=== PATIENT | female | born 1955 | race Caucasian/White ===

== ENCOUNTER 2025-01-21 11:11 | Inpatient (IN) | payer MEDICARE ==
[~2025-01-21 11:11] MED LIST: Iopamidol 300 61% 100 ML VIAL FS ONE
[2025-01-21] MEDS ORDERED: Dicyclomine 20 MG TAB ONE (12:12)
[2025-01-21 12:40] LABS: #Basophils 0.04 10x3/uL (0.0-0.2); #Eosinophils 0.03 10x3/uL (0.0-0.5); #Monocytes 0.89 10x3/uL (0.0-1.1); #Neutrophils 14.41 10x3/uL (1.5-8.4); %Basophils 0.2 % (0.0-2.0); %Eosinophils 0.2 % (0.0-6.0); %Lymphocytes 6.1 % (18.0-47.0); %Monocytes 5.4 % (0.0-10.0); %Neutrophils 87.7 % (40.0-75.0); Hematocrit 39.7 % (34.9-44.5); Hemoglobin 13.3 g/dL (12.0-15.5); Mean Corpuscular Hemoglobin 30.2 pg (27.0-33.0); Mean Corpuscular Volume 90.2 fL (81.6-98.3); Platelet Count 280 10x3/uL (150-450); Red Blood Cell (RBC) Count 4.40 10x6/uL (3.90-5.03); White Blood Cell (WBC) Count 16.44 10x3/uL (3.5-10.5)
[2025-01-21 13:08] LABS: ALT (SGPT) 12 U/L (Less than 34); AST (SGOT) 40 U/L (11-34); Albumin 4.4 g/dL (3.1-4.5); Alkaline Phosphatase 70 U/L (40-110); Anion Gap 16 mmol/L (10-20); BUN (Urea Nitrogen) 9 mg/dL (9.8-20.1); Bilirubin, Total 0.6 mg/dL (0.3-1.2); Calc. Creatinine Clearance 0 mL/min (70-130); Calcium 10.7 mg/dL (7.8-10.44); Carbon Dioxide 18 mmol/L (23-31); Chloride 106 mmol/L (98-107); Globulin 3.7 g/dL (2.4-3.5); Glucose 143 mg/dL (80-115); Lipase 11 U/L (8-78); Potassium 4.3 mmol/L (3.5-5.1); Sodium 136 mmol/L (136-145)
[2025-01-21 13:17] LABS: Glucose, Urine (Dipstick) Normal (Negative); Leukocyte Negative (Negative); Protein, Urine (Dipstick) 30 mg/dl (Neg-Trace); Specific Gravity, Urine 1.015 (1.005-1.030)
[2025-01-21 13:45] LABS: Bacteria/HPF 2+ HPF (None Seen); CAUTI Indications for Culture Pelvic or flank pain; Mucous/LPF 1+ LPF (<2+); WBC/HPF 0-3 HPF (0-3)
[2025-01-21 13:46] LABS: Urine Culture Reflex No No
[2025-01-21 16:22] VITALS: BMI 26.4
[2025-01-21] MEDS ORDERED: PROPOFOL 20 ML ONE (17:34)
[2025-01-21] MEDS ORDERED: Rocuronium Bromide 10 MG/ML (10ML VIAL) ONE (17:37)
[2025-01-21] MEDS ORDERED: Lidocaine 1% PF 5 ML VIAL ONE (17:37)
[2025-01-21] MEDS: Ondansetron PF 4 MG/2 ML Vial IVP PRN (17:48)
[2025-01-21] MEDS ORDERED: PHENYLEPHRINE-NS 100 MCG/ML 10 ML SYRINGE ONE (18:40)
[2025-01-21] MEDS ORDERED: SUGAMMADEX SODIUM 200 MG/2 ML VIAL ONE (19:55)
[2025-01-21] MEDS ORDERED: Ondansetron PF 4 MG/2 ML Vial IVP PRN ×2 (20:22→21:06)
[2025-01-21] MEDS ORDERED: diphenhydrAMINE 50 MG/ML VIAL IVP PRN (21:06)
[2025-01-21] MEDS ORDERED: diphenhydrAMINE 25 MG CAP PO PRN (21:06)
[2025-01-21] MEDS ORDERED: diphenhydrAMINE 50 MG/ML VIAL IM PRN (21:06)
[2025-01-21] MEDS ORDERED: Communication Order-Pharmacy FS SCH (21:15)
[2025-01-21] MEDS: fentaNYL Citrate/PF 55 ML IV SCH (21:59)
[2025-01-21] MEDS: cefOXitin Sodium 1 GM in Sodium Chloride 0.9% 100 ML IVPB SCH (22:38)
[2025-01-21] MEDS: Famotidine/PF 20 mg/2ml Vial SLOW IVP SCH (22:43)
[2025-01-21] MEDS: Enoxaparin 30 MG (0.3 mL) SYRINGE SC SCH (22:43)
[2025-01-21] MEDS: Ketorolac Tromethamine 30 MG (1 mL) VIAL IVP SCH (23:47)
[2025-01-22 04:39] LABS: #Basophils Less than 0.03 10x3/uL (0.0-0.2); #Eosinophils 0.25 10x3/uL (0.0-0.5); #Monocytes 0.87 10x3/uL (0.0-1.1); #Neutrophils 12.52 10x3/uL (1.5-8.4); %Basophils 0.1 % (0.0-2.0); %Eosinophils 1.7 % (0.0-6.0); %Lymphocytes 5.7 % (18.0-47.0); %Monocytes 6.0 % (0.0-10.0); %Neutrophils 86.2 % (40.0-75.0); Hematocrit 40.6 % (34.9-44.5); Hemoglobin 13.5 g/dL (12.0-15.5); Mean Corpuscular Hemoglobin 30.1 pg (27.0-33.0); Mean Corpuscular Volume 90.4 fL (81.6-98.3); Platelet Count 257 10x3/uL (150-450); Red Blood Cell (RBC) Count 4.49 10x6/uL (3.90-5.03); White Blood Cell (WBC) Count 14.53 10x3/uL (3.5-10.5)
[2025-01-22 04:45] LABS: Anion Gap 12 mmol/L (10-20); BUN (Urea Nitrogen) 10 mg/dL (9.8-20.1); Calc. Creatinine Clearance 95 mL/min (70-130); Calcium 9.2 mg/dL (7.8-10.44); Carbon Dioxide 20 mmol/L (23-31); Chloride 113 mmol/L (98-107); Glucose 147 mg/dL (80-115); Potassium 4.1 mmol/L (3.5-5.1); Sodium 141 mmol/L (136-145)
[2025-01-23 07:41] LABS: #Basophils Less than 0.03 10x3/uL (0.0-0.2); #Eosinophils 0.06 10x3/uL (0.0-0.5); #Monocytes 0.67 10x3/uL (0.0-1.1); #Neutrophils 7.61 10x3/uL (1.5-8.4); %Basophils 0.2 % (0.0-2.0); %Eosinophils 0.6 % (0.0-6.0); %Lymphocytes 13.4 % (18.0-47.0); %Monocytes 6.9 % (0.0-10.0); %Neutrophils 78.3 % (40.0-75.0); Hematocrit 32.8 % (34.9-44.5); Hemoglobin 10.7 g/dL (12.0-15.5); Mean Corpuscular Hemoglobin 30.0 pg (27.0-33.0); Mean Corpuscular Volume 91.9 fL (81.6-98.3); Platelet Count 211 10x3/uL (150-450); Red Blood Cell (RBC) Count 3.57 10x6/uL (3.90-5.03); White Blood Cell (WBC) Count 9.72 10x3/uL (3.5-10.5)
[2025-01-23 07:53] LABS: Anion Gap 10 mmol/L (10-20); BUN (Urea Nitrogen) 9 mg/dL (9.8-20.1); Calc. Creatinine Clearance 103 mL/min (70-130); Calcium 9.1 mg/dL (7.8-10.44); Carbon Dioxide 20 mmol/L (23-31); Chloride 111 mmol/L (98-107); Glucose 103 mg/dL (80-115); Potassium 3.5 mmol/L (3.5-5.1); Sodium 137 mmol/L (136-145)
[2025-01-23] MEDS: Pantoprazole 40 MG DR.TAB PO SCH (08:45)
[2025-01-23] MEDS: 1/2 NS w/Potassium 20 mEq 1,000 ML IV SCH (08:45)
[2025-01-23] MEDS: hydrALAZINE 20 MG/ML VIAL SLOW IVP PRN (23:13)
[2025-01-25 05:16] LABS: Anion Gap 10 mmol/L (10-20); BUN (Urea Nitrogen) Less than 4 mg/dL (9.8-20.1); Calc. Creatinine Clearance 115 mL/min (70-130); Calcium 9.4 mg/dL (7.8-10.44); Carbon Dioxide 22 mmol/L (23-31); Chloride 109 mmol/L (98-107); Glucose 90 mg/dL (80-115); Magnesium 1.8 mg/dL (1.6-2.6); Potassium 4.1 mmol/L (3.5-5.1); Sodium 137 mmol/L (136-145)
[2025-01-25] MEDS: HYDROcodone/Acetaminophen 5/325 mg Tablet PO PRN ×2 (12:28→21:26)
[2025-01-26 08:32] VITALS: BP 147/84; TEMP 98
[2025-01-26] MEDS: FLU (Fluad Triv) 25-26 (65UP)PF 45 MCG/0.5 ML Syringe IM ONE (14:15)
[2025-01-26] MEDS: PNEUMOC 20-VAL CONJ-DIP CRM/PF 0.5 ML SYRINGE IM ONE (14:15)
== END 2025-01-26 11:47 | disposition home or self-care (01) | DRG 330 ==
LOC: CSHERS 11:11 → CSHTELE 15:09 → OBSVTOIN 20:22
PROVIDERS: ADMIT Surgery; ATTEND Surgery
PROC: 0DTF0ZZ Resection of Right Large Intestine, Open Approach (ICD-10-PCS; principal; 2025-01-21)
DX: C18.9 Malignant neoplasm of colon, unspecified (principal); K56.7 Ileus, unspecified; K91.89 Other postprocedural complications and disorders of digestive system; I10 Essential (primary) hypertension; K21.9 Gastro-esophageal reflux disease without esophagitis; E78.5 Hyperlipidemia, unspecified; E86.1 Hypovolemia
CPT/HCPCS: 36415; 36416; 74177; 80048; 80053; 81001; 82378; 83605; 83690; 83735; 84100; 85025; 88309; 88341; 88342; 96365; 96375; 96376; C1765; G0378; J0360; J0694; J1100; J1308; J1650; J1885; J2272; J2405; J2543; J2704; J3480; J7030; J7120; Q9967